=== PATIENT | female | born 1960 | race Caucasian/White ===

== ENCOUNTER 2016-07-11 13:03 | Inpatient (IN) | payer OTHER ==
[~2016-07-11] VITALS: Ht 156.2 cm; Wt 78.5 kg
[~2016-07-11 13:03] MED LIST: ALBU8.5H2 INHALATION; BUPR150T8 PO; LISI1TAB11 PO; METH40TA2 PO; OMEP40CA36 PO; PANT40TA3 PO; PARO10OR3 PO; ZOV800 PO
[2016-07-11 13:21] VITALS: BP 177/104; PULSE 89; RESP 20; O2SAT 94
[2016-07-11 13:59] LABS: BASOPHILS % (AUTO) 0.7 % (0-3)
[2016-07-11 14:02] LABS: EOSINOPHILS % (AUTO) 0.5 % (0-5); MONOCYTES % (AUTO) 7.9 % (4-12); Mean Corpuscular Volume 89.7 fL (81-100); Platelet Count 147 bil/L (150-400)
--- NOTE | 2016-07-11 14:35 | DRSVH ---
PROCEDURE: X-RAY ACUTE ABDOMINAL SERIES ([id number]) INDICATIONS: Hx of SBO severe ABD pain TECHNIQUE: One view chest and two views of the abdomen were acquired. COMPARISON: [facility], , ABD ACUTE SERIES, 05/09/2013, 6:50. FINDINGS: Surgical changes and devices: Surgical clips right upper quadrant consistent with cholecystectomy, ad ditional surgical clips left upper quadrant, uncertain etiology. Chest: Lungs are clear. Heart size is normal. No pleural effusions. No pneumoperitoneum. Abdomen: Bowel gas pattern is normal except for several small bowel loops over the mid abdomen and c entered to the left of midline at the midabdomen/pelvis junction where mild gas prominence is present . No suspicious calcifications. Visualized solid organ contours appear normal. Bones: No suspicious bony lesions. IMPRESSION: Small bowel gas prominence to the degree that a focal ileus or early small bowel obstruct ion would be suspected midabdomen, near the junction of the abdomen/pelvis. No free air or pneumatos is found, and a gas prominence does not reach the size criteria for true small bowel distention at th is time (3 cm). Dictated by: Thien Manzo M.D. on 07/11/2016 at 14:34 Approved by: Thien Manzo M.D. on 07/11/2016 at 14:34
--- NOTE | 2016-07-11 15:31 | ED.REPORT ---
HPI-Abd Pain F 40 and Over Date of Service Jul 11, 2016 ED Provider: Owne Locke MD A 56 year old female with a medical history including hypertension, SBO, hepatitis C, and COPD s/p multiple abdominal surgeries presents to the ED with lower abdominal pain onset 0400 this morning. She also reports vomiting and constipation, without passing gas. Her symptoms are similar to previous SBOs. Nursing Notes Stated Complaint: ABDOMINAL PAIN Chief Complaint: Female Abdominal Pain Nursing Notes Reviewed: Yes Allergies: Coded Allergies: meloxicam (Verified Allergy, Unknown, dizziness. CAN TAKE IBUPROFEN, ) tramadol (Verified Allergy, Unknown, seizure, 07/25/15) TAPE (Verified Adverse Reaction, Intermediate, rash, 10/15/14) Scheduled Bupropion ER (Wellbutrin SR) 150 Mg Tablet.er 150 MG PO DAILY Lisinopril / HCTZ 20-25 mg (Lisinopril / HCTZ 20-25 mg) 1 Each Tablet 1 EACH PO DAILY Methadone (Methadone) 40 Mg Tablet.sheela 76 MG PO DAILY Omeprazole (Omeprazole) 40 Mg Capsule.dr 40 MG PO DAILY Pantoprazole DR (Pantoprazole DR) 40 Mg Tablet.dr 40 MG PO DAILY Paroxetine (Paxil) 10 Mg Tab 10 MG PO DAILY Scheduled PRN Albuterol HFA (Proair HFA) 8.5 Gm Hfa.aer.ad 2 PUFFS INHALATION Q4H PRN PRN For Shortness of Breath Miscellaneous Medications Acyclovir (Acyclovir) 800 Mg Tab 800 MG PO General Time Seen by MD: 15:30 Chief Complaint Abdominal pain Hx Obtained From: Patient Arrived By: Walk-in Sudden in Onset?: Yes Onset Occurred: 9 - 12 hours ago Symptom Duration: Since onset Progression since Onset: Gradually worsening Location: : Abdomen lower Quality: Painful Severity: Current: Moderate Severity: Maximum: Moderate Associated with: Reports: Constipation, Vomiting, Denies: Fever Pertinent Negative: Relieved by nothing Context Related History: Reports: Abdominal surgery, Bowel obstruction Recent Healthcare: No recent doctor visit Similar Sx Previous: Yes Past Medical History Past Medical History Notes: Currently on methadone on taper 07/11/2016 lists meloxicam as allergy- tolerates ibuprofen and toradol Past Medical History Hypertension Blood clots (spleen) Antithrombin III deficiency Chronic hepatitis C Osteoarthritis 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 Physical Exam Vital Signs Vital Signs (First) Date Time Temp Pulse Resp B/P Pulse Ox O2 Delivery O2 Flow Rate FiO2 07/11/16 13:21 37.2 89 20 177/104 94 Room Air Initial VS: Reviewed Head / Eyes: Atraumatic, Normocephalic ENT: Conjunctiva normal, No scleral icterus Neck: Supple, Full range of motion Skin: Warm, Dry, No cyanosis Neurologic: Alert, Oriented, Nonfocal Psychiatric: Mood/affect normal, Behavior normal, Normal thought content Respiratory / Chest: Breath sounds NL, Breath sounds = bilat, No respiratory distress Cardiovascular: Heart rate NL, Regular rhythm, Heart sounds NL Abdomen: Soft Bowel Sounds / Distention: Positive: Bowel sounds hypoactive (Dramatically decreased, faint tinkling noises) Interpretation & Diagnostics Lab Results Interpretation Result Diagram: 07/11/16 1345 07/11/16 1345 Test 07/11/16 13:45 07/11/16 14:07 White Blood Count 8.5th/mm3 (3.8-10.1) Red Blood Count 4.48mil/mm3 (3.90-5.20) Hemoglobin 13.9g/dL (12.0-15.6) Hematocrit 40.2% (35.0-46.0) Mean Corpuscular Volume 89.7fL (81-100) Mean Corpuscular Hemoglobin 31.0pg (27.0-35.0) Mean Corpuscular Hemoglobin Concent 34.6% (32.0-37.0) Red Cell Distribution Width 14.3% (12.3-15.4) Platelet Count 147bil/L (150-400) Neutrophils (%) (Auto) 41.0% (40-74) Lymphocytes (%) (Auto) 49.3% (14-46) Monocytes (%) (Auto) 7.9% (4-12) Eosinophils (%) (Auto) 0.5% (0-5) Basophils (%) (Auto) 0.7% (0-3) Sodium Level 140mEq/L (134-144) Potassium Level 5.0mEq/L (3.5-5.2) Chloride Level 104mEq/L (97-108) Carbon Dioxide Level 22mmol/L (18-29) Blood Urea Nitrogen 14mg/dL (6-24) Creatinine 0.85mg/dL (0.57-1.00) Estimat Glomerular Filtration Rate 99mL/min (>59) Glucose Level 116mg/dL (60-99) Calcium Level 9.0mg/dL (8.5-10.1) Magnesium Level 2.0mg/dL (1.6-2.6) Total Bilirubin 0.8mg/dL (0.0-1.2) Aspartate Amino Transf (AST/SGOT) 50U/L (0-50) Alanine Aminotransferase (ALT/SGPT) 23U/L (0-32) Alkaline Phosphatase 159U/L (25-150) Total Protein 8.1g/dL (6.4-8.4) Albumin 4.1g/dL (3.4-5.0) Lipase 34U/L (13-60) Hold Helotn Top Tube Received (Received) X-Ray Abdominal Interpretation IMPRESSION: Small bowel gas prominence to the degree that a focal ileus or early small bowel obstruction would be suspected midabdomen, near the junction of the abdomen/pelvis. No free air or pneumatosis found, and a gas prominence does not reach the size criteria for true small bowel distention at this time (3 cm). Dictated by: Thien Manzo M.D. on 07/11/2016 at 14:34 Study: 2 view Interpretation / Wet Read by: Interpret - Radiologist Re-Eval/Medical Decision Source of Hx: Old records Re-Evaluation/Progress : Time of Eval: 15:45 Patient Status: Condition improved Re-Evaluation/Progress Note: Discussed with patient x-ray results, diagnosis, and plan for admit. Patient agrees with plan for care and all questions were addressed. Consultation : Referral / Consult Name: Chata Shay MD Consulted With: Hospitalist Call Returned at: 15:59 Tobacco Sorter: Agrees with eval, Agrees with plan, Accepts admit Counseled Regarding: Diagnosis, Need for admission Discharge & Departure Primary Impression: SBO (small bowel obstruction) Disposition: ADMITTED TO HOSPITAL Discharge Condition All VS Reviewed: Yes Condition: Stable Referrals: Junior Snowden PA-C (PCP) Anastasia Attestation Portions of this note were transcribed by Narda Agarwal. I, Dr. Locke, personally performed the history, physical exam, and medical decision-making; I reviewed and confirmed the accuracy of the information in the transcribed note. Signed by: Anastasia Grande, 07/11/2016, 16:04 copies to: Junior Snowden PA-C, Kirk H MD Jul 11, 2016 15:30 NARDA AGARWAL Jul 11, 2016 15:44
[2016-07-11] MEDS ORDERED: 0.9% Sodium Chloride 1,000 ML IV ONE (15:39)
[2016-07-11] MEDS ORDERED: Pantoprazole 4 mg/mL 10 mL Inj IVPUSH ONE ×2 (15:40→20:30)
[2016-07-11] MEDS ORDERED: Ondansetron 2 mg/mL 2 mL Inj IVPUSH PRN ×4 (15:40→17:15)
[2016-07-11] MEDS ORDERED: HYDROmorphone 1 mg/mL Inj IVPUSH ONE (15:40)
[2016-07-11] MEDS ORDERED: PARO10TA24 PO (16:10)
--- NOTE | 2016-07-11 16:19 | PCM.HPMED ---
Subjective Date of Service Jul 11, 2016 Primary Provider: Admitting Physician: Primary Care Physician: Junior Snowden PA-C Attending Physician: Chief Complaint: [facility] History of present illness 56-year-old female, multiple SBO, with lower abdominal pain at 4 AM, associated vomiting and obstipation. no blood invomitus. SBO started after rectal mesh 2007 due to fecal incontinence attributed to prior episiotomy. in the ER Dilaudid 5mg Protonix 40 normal saline 1 L Review of Systems - none of the following - F/C/sick contact / wt change/ HEADLEY / lightheaded / dizziness / sob / cough / cp / bleeding/bruising / leg swelling / change in voiding / yeast infections / rash chronic acid reflux despite PPI BID uses baking soda at times FAMILY HX colorectal cancer SOCIAL HX prior IV drug use/heroin cocaine, alcohol, 15cg per day meds Scheduled Acyclovir (Acyclovir) 800 Mg Tab 800 MG PO 5XD Bupropion ER (Wellbutrin SR) 150 Mg Tablet.er 150 MG PO BID Lisinopril / HCTZ 20-25 mg (Lisinopril / HCTZ 20-25 mg) 1 Each Tablet 1 EACH PO DAILY Methadone (Methadone) 40 Mg Tablet.sheela 76 MG PO DAILY Omeprazole (Omeprazole) 40 Mg Capsule.dr 40 MG PO DAILY Pantoprazole DR (Pantoprazole DR) 40 Mg Tablet.dr 40 MG PO DAILY Paroxetine (Paxil) 10 Mg/5 Ml Oral.susp 10 MG PO DAILY Scheduled PRN Albuterol HFA (Proair HFA) 8.5 Gm Hfa.aer.ad 2 PUFFS INHALATION Q4H PRN PRN For Shortness of Breath Past Medical/Surgical HX Hepatitis C chronicundetectable August 2014 /chronic lymphocytosis(WBC 10-15, lymphocytes 60%, negative CLL workup 2010) enlarged lymph nodes-- follow-up with oncology February 2017 Osteoarthritis sickle Cell trait/splenectomy childhood Colon polyp Tramadol related seizures Cardiac ablation WPW 1989, irregular heartbeat COPD GERD Pelvic inflammatory disease/tubal Incontinence Bilateral knee replacement, left ankle fracture/arthritis fecal incontinence s/p repair here Allergies Coded Allergies: meloxicam (Verified Allergy, Unknown, dizziness. CAN TAKE IBUPROFEN, ) tramadol (Verified Allergy, Unknown, seizure, 07/25/15) TAPE (Verified Adverse Reaction, Intermediate, rash, 10/15/14) PMH Social History Hx Alcohol Use: Yes Hx Substance Use: Yes (cocaine and heroine last used 2007; currently on methadone taper) Hx Tobacco Use: No Smoking Status: Never Smoker Exam Vital Signs Vital Sign - Last Date Time Temp Pulse Resp B/P Pulse Ox O2 Delivery O2 Flow Rate FiO2 07/11/16 13:21 37.2 89 20 177/104 94 Room Air Exam Exam on admission NAD A and O x 3 mood affect WNL NC/AT no icterus no injected eyes EOMI PERRL /no pharyngeal lesions/ no oral lesions / hearing intact Supple neck CTAB equal chest rise / no accessory muscle use / speaks in full sentences / no rrw RRR S1 S2 / no mrg / 2+ radial pulses Soft nt nd + BS no hepatosplenomegaly No edema no cyanosis no ecchymosis of lower extremities No rash / no jaundice GUERRIER CNII-XII grossly intact symmetrical No dysmetria of bilateral upper and lower limbs /no asterixis/ Strength grossly intact of bilateral upper and lower limbs Sensation grossly symmetrical of bilateral upper and lower limbs Lipase 34, alkaline phosphatase 159, LFTs normal PROCEDURE: X-RAY ACUTE ABDOMINAL SERIES ([id number]) INDICATIONS: Hx of SBO severe ABD pain TECHNIQUE: One view chest and two views of the abdomen were acquired. COMPARISON: [facility], , ABD ACUTE SERIES, 05/09/2013, 6:50. FINDINGS: Surgical changes and devices: Surgical clips right upper quadrant consistent with cholecystectomy, additional surgical clips left upper quadrant, uncertain etiology. Chest: Lungs are clear. Heart size is normal. No pleural effusions. No pneumoperitoneum. Abdomen: Bowel gas pattern is normal except for several small bowel loops over the mid abdomen and centered to the left of midline at the midabdomen/pelvis junction where mild gas prominence is present. No suspicious calcifications. Visualized solid organ contours appear normal. Bones: No suspicious bony lesions. IMPRESSION: Small bowel gas prominence to the degree that a focal ileus or early small bowel obstruction would be suspected midabdomen, near the junction of the abdomen/pelvis. No free air or pneumatosis found, and a gas prominence does not reach the size criteria for true small bowel distention at this time ( 3 cm). 06/04/2016 PROCEDURE: CT ABDOMEN AND PELVIS WITH CONTRAST ([id number]) INDICATIONS: H/O HEPATITIS C, F/U LYMPHADENOPATHY TECHNIQUE: After the administration of oral and intravenous contrast, 5 mm thick sections acquired from the diaphragms to the symphysis. 5 mm thick coronal and sagittal reformats were performed. For radiation dose reduction, the following was used : automated exposure control, adjustment of mA and/or kV according to patient size. COMPARISON: [facility], CT, ABD/PELVIS W/CON (PN), 09/26/2014, 9: 46. FINDINGS: Image quality: Excellent. ABDOMEN: Lung bases: Lung bases are clear. Heart size is normal. Solid organs: Liver is normal in size and enhancement. Hepatic steatosis is present. The spleen has been removed. Gallbladder has been removed. Biliary system is non-dilated. Pancreas enhances normally. No adrenal nodules. Kidneys are normal in size and enhancement, without hydronephrosis. Peritoneum and bowel: Stomach, small bowel, and colon loops are normal in caliber and wall thickness. No free fluid or air. Nodes and vessels: The previously identified periportal and peripancreatic lymph nodes demonstrate very minimal interval decrease in size, 1-2 mm. Otherwise, no appreciable interval change. No new areas of adenopathy are identified. Aorta and inferior vena cava are normal in caliber. Miscellaneous: No ventral hernias. PELVIS: Genitourinary: Bladder wall thickness is normal. Miscellaneous: No inguinal hernias or adenopathy. Bones: No suspicious bony lesions. No vertebral body compression fractures. IMPRESSION: 1. Very minimal interval decrease in size of previous identified periportal and peripancreatic lymph nodes. Otherwise, stable interval exam. Lab and Diagnostics Result Diagram: 07/11/16 1345 07/11/16 1345 Assessment & Plan Active issues and reason for admission Recurrent SBO, on methadone --if recurrent vomit, start NGT and order CT. --zofran, trial relistor, monitor electrolytes --recommend outpt gen surg f/u regarding lysis of adhesion candidacy chronic methadone --dilaudid Q3 / ativan / Monitor withdrawal smoker --prn nicotine patch Chronic issues known prior to admission, present on admission Hepatitis C chronicundetectable August 2014 /chronic lymphocytosis(WBC 10-15, lymphocytes 60%, negative CLL workup 2010) enlarged lymph nodes-- follow-up with oncology February 2017 Osteoarthritis sickle Cell trait/splenectomy childhood Colon polyp Tramadol related seizures Cardiac ablation WPW 1989, irregular heartbeat COPD GERD Pelvic inflammatory disease/tubal Incontinence Bilateral knee replacement, left ankle fracture/arthritis --held home omep/proton, on IV famotidine and IV PPI --albuterol prn Diet npo DVT prophylaxis lovenox heparin scd ambulate Code full Disposition inpatient. Assessment and plan were discussed with patient Chata Shay MD Jul 11, 2016 16:17 07/11/16 13:21 37.2 89 20 177/104 94 Room Air Lab and Diagnostics Result Diagram: 07/11/16 1345 07/11/16 1345 Chata Shay MD Jul 11, 2016 16:17
[2016-07-11] MEDS ORDERED: HYDROmorphone 1 mg/mL Inj IVPUSH PRN ×2 (16:20→19:20)
[2016-07-11] MEDS ORDERED: Methylnaltrexone 12 mg/0.6 mL Inj SUBQ ONE (16:20)
[2016-07-11 16:31] LABS: INR 1.05 ratio
[2016-07-11] MEDS ORDERED: D5 0.45% NaCl + KCl 20 mEq/L 1,000 ML IV SCH (17:07)
[2016-07-11] MEDS ORDERED: Albuterol-Ipratropium 3 mL Inhalation Solution NEB PRN (17:15)
--- NOTE | 2016-07-11 17:59 | NUR ---
Transfer from ED to [facility] [place] Report received by nurse approx [phone]. patient is alert and oriented X3. Able to make needs known. room air. Wide open NS running when came to [facility] [place]. IV site noted to be puffy. Discontinued IV on the right upper arm. charge nurse called IV therapy and new IV start is in the process by IV therapy. independent with all transfers and bed mobility. mild pain in the abdomen reported by patient. o skin issues noted. redness/bruising to bilateral arms due to IV starts in the ER per patient. call light with in reach for safety and verbalize the use of call light. stable mood. continue to monitor for pain and safety.
[2016-07-11 18:14] VITALS: BP 160/87; PULSE 88; RESP 16; O2SAT 93
--- NOTE | 2016-07-11 18:26 | NUR ---
PICC product line manager pageasher Doctor r/t IV therapy unable to start IV access. doctor orders to start PICC line.
--- NOTE | 2016-07-11 18:32 | NUR ---
Called IV therapy for PICC line Called IV therapy for new orders from doctor to start PICC line and IV therapy stated," it is too late to do." Jere paged doctor for further orders. awaiting response.
[2016-07-11 20:30] VITALS: BP 187/99; PULSE 78; RESP 20; O2SAT 94
[2016-07-11] MEDS ORDERED: Famotidine Inj 20 MG in IV Premix 1 EACH IV SCH (20:30)
[2016-07-11] MEDS: HYDROmorphone 1 mg/mL Inj IVPUSH PRN ×3 (21:03→22:20)
[2016-07-11] MEDS: D5 0.45% NaCl + KCl 20 mEq/L 1,000 ML IV SCH (21:03)
--- NOTE | 2016-07-11 21:11 | ABG ---
DateTimeAnalyzed 21:04:00 -_ pH ____7.405 - 7.350 7.450 pCO2 ___38.7__ -mmHg 35.0 45.0 pO2 ___38.9__ -mmHg 70.0 100 HCO3- ___23.8__ -mmol/L 22.0 26.0 ABE ___-0.2__ -mmol/L -2.0 2.0 tHb ___13.1__ -g/dL 12.0 18.0 O2Hb ___68.3__ -% 95.0 COHb ____1.7__ -% 1.5 MetHb ____1.3__ -% 0.4 1.5 sO2 ___70.4__ -% FIO2 ___21.0__ -% Drawn By jh - Date/Time Notified____ 21:10:00 -_ Notified By JH - Notified Whom ANES - B 736 -mmHg tO2 ___12.6__ -Vol% Eliseo test N/A -
[2016-07-12] MEDS: Famotidine Inj 20 MG in IV Premix 1 EACH IV SCH ×3 (00:15→20:24)
[2016-07-12] MEDS ORDERED: Methylnaltrexone 12 mg/0.6 mL Inj SUBQ ONE (01:05)
[2016-07-12] MEDS: HYDROmorphone 1 mg/mL Inj IVPUSH PRN ×2 (01:19→04:43)
[2016-07-12 01:45] VITALS: BP 161/84; PULSE 69; RESP 16; O2SAT 94
[2016-07-12 04:13] VITALS: BP 165/90; PULSE 73; RESP 17; O2SAT 94
--- NOTE | 2016-07-12 06:47 | NUR ---
BPs/Pain Pt's BP has been elevated throughout the shift and MD was notified. There are currently no IV BP meds for the pt. The pt takes lisinopril/HCTZ 20-25mg 1xdaily. Pt also takes methadone 76mg 1xdaily in the AM and there is currently none in the EMAR. Pt's pain remains 7/10-8/10 with no relief from 4mg Dilaudid that can be given Q3H.
[2016-07-12] MEDS: Methadone 10 mg/mL 30 mL Oral Concentration PO SCH (09:27)
[2016-07-12] MEDS: Pantoprazole 40 mg ER24 Tablet PO SCH (09:27)
[2016-07-12] MEDS: buPROPion SR 150 mg ER12 Tablet PO SCH (09:27)
[2016-07-12] MEDS: PARoxetine 20 mg Tablet PO SCH (09:28)
[2016-07-12 10:08] LABS: BASOPHILS % (AUTO) 0.4 % (0-3); EOSINOPHILS % (AUTO) 1.1 % (0-5); MONOCYTES % (AUTO) 11.7 % (4-12); Mean Corpuscular Hemoglobin 31.6 pg (27.0-35.0); Mean Corpuscular Volume 91.5 fL (81-100); NEUTROPHILS % (AUTO) 31.8 % (40-74); Platelet Count 134 bil/L (150-400)
[2016-07-12] MEDS: D5 0.45% NaCl + KCl 20 mEq/L 1,000 ML IV SCH ×2 (10:17→21:33)
[2016-07-12] MEDS ORDERED: Albuterol 2.5 mg/3 mL Inhalation Solution NEB PRN (11:00)
[2016-07-12 12:30] VITALS: BP 134/81; PULSE 78; RESP 16; O2SAT 92
--- NOTE | 2016-07-12 14:47 | PCM.PNMED ---
Subjective Date of Service Jul 12, 2016 Subjective Patient seen earlier this morning, lying supine in bed. Today pain is about a 5 -610. He is on methadone and has been restarted this morning. We will stop Dilaudid for now and see if we can substitute with when necessary Toradol for persistent pain. Patient states she is passing gas and had small small BM Exam Vital Signs Vital Sign - Last Date Time Temp Pulse Resp B/P Pulse Ox O2 Delivery O2 Flow Rate FiO2 07/12/16 12:30 36.8 78 16 134/81 92 Room Air Intake and Output 07/11/16 07/11/16 07/12/16 Cumulative From/Thru 15:00 23:00 07:00 07/11/16 13:21 - 07/12/16 06:10 Intake Total 100 ml 630 ml 730 ml Balance 100 ml 630 ml 730 ml Intake Oral 0 ml 0 ml IV Total 100 ml 630 ml 730 ml # Voids 2 2 # Bowel Movements 1 1 Exam NAD A and O x 3 mood affect WNL, lying supine NC/AT no icterus no injected eyes EOMI PERRL /no pharyngeal lesions/ no oral lesions / hearing intact Supple neck CTAB equal chest rise / no accessory muscle use / speaks in full sentences / no rrw RRR S1 S2 / no mrg / 2+ radial pulses Soft positive epigastric pain, no guarding or peritoneal signs decreased bowel sounds, no hepatosplenomegaly No edema no cyanosis no ecchymosis of lower extremities No rash / no jaundice GUERRIER CNII-XII grossly intact symmetrical No dysmetria of bilateral upper and lower limbs /no asterixis/ Strength grossly intact of bilateral upper and lower limbs Sensation grossly symmetrical of bilateral upper and lower limbs IVs and Medications Medications Reviewed: Medications were reviewed in detail Lab and Diagnostics Result Diagram: 07/12/1645 07/12/16 0945 X-Rays, CTs and MRIs IMPRESSION: Small bowel gas prominence to the degree that a focal ileus or early small bowel obstruction would be suspected midabdomen, near the junction of the abdomen/pelvis. No free air or pneumatosis found, and a gas prominence does not reach the size criteria for true small bowel distention at this time ( 3 cm). Dictated by: Thien Manzo M.D. on 07/11/2016 at 14:34 Assessment & Plan Active issues and reason for admission Recurrent SBO, on methadone --if recurrent vomit, start NGT and order CT. --zofran, trial relistor, monitor electrolytes --recommend outpt gen surg f/u regarding lysis of adhesion candidacy -- Recheck abdominal x-ray, trial of full liquid diet tomorrow chronic methadone . Dilaudid, trial of Toradol when necessary if pain unresponsive to methadone and failed comfort with when necessary ativan / Monitor withdrawal smoker --prn nicotine patch Chronic issues known prior to admission, present on admission Hepatitis C chronicundetectable August 2014 /chronic lymphocytosis(WBC 10-15, lymphocytes 60%, negative CLL workup 2010) enlarged lymph nodes-- follow-up with oncology February 2017 Osteoarthritis sickle Cell trait/splenectomy childhood Colon polyp Tramadol related seizures Cardiac ablation WPW 1989, irregular heartbeat COPD GERD Pelvic inflammatory disease/tubal Incontinence Bilateral knee replacement, left ankle fracture/arthritis --held home omep/proton, on IV famotidine and IV PPI --albuterol prn Diet npo DVT prophylaxis lovenox heparin scd ambulate Code full Disposition inpatient. Assessment and plan were discussed with patient Pain Evaluation: Adequate Pain Control VTE Prophylaxis: Sub-Q Enoxaparin Resuscitation Status: CPR: Attempt Resuscitation Time spent 35 minutes spent with evaluation and management Grant Prado DO Jul 12, 2016 14:47
--- NOTE | 2016-07-12 16:19 | DRSVH ---
PROCEDURE: X-RAY ACUTE ABDOMINAL SERIES ([id number]) INDICATIONS: small bowel obstruction TECHNIQUE: One view chest and two views of the abdomen were acquired. COMPARISON: [facility], CR, XR ABD ACUTE SERIES 3VW, 07/11/2016, 13:58. FINDINGS: Surgical changes and devices: Clips are present overlying the upper quadrants bilaterally. Chest: Lungs are clear. Heart size is normal. No pleural effusions. No pneumoperitoneum. Abdomen: There is scattered small air-fluid levels within the abdomen and pelvis. No suspicious calci fications. Visualized solid organ contours appear normal. Bones: No suspicious bony lesions. IMPRESSION: Small scattered air-fluid levels within the abdomen pelvis. Findings are suggestive of il eus versus developing partial small bowel obstruction. Overall appearance does not demonstrate significant interval deterioration or improvement compared to prior exam. Dictated by: Lizzie Dykes M.D. on 07/12/2016 at 16:13 Approved by: Lizzie Dykes M.D. on 07/12/2016 at 16:13
--- NOTE | 2016-07-12 16:22 | NUR ---
Social Work Note: Screen Note Data and Assessment: EMR reviewed. Akanksha Hewitt is a 56 year old female admitted on 07/11/2016 for Abdominal pain. Pt has [employer] for insurance coverage and sees Junior Painting PA-C for primary care. Patient's NOK is September . Patient is independent at baseline. Pt is currently SBA in her room. No discharge needs identified at this time. SW to continue to follow if any needs arise. Plan: Anticipated discharge home via POV when medically ready. No discharge needs identified at this time. SW to continue to follow in case any needs arise. Lynn Madrid LMSW, ACM
[2016-07-12 20:57] VITALS: BP 143/81; PULSE 73; RESP 16; O2SAT 94
--- NOTE | 2016-07-13 04:51 | NUR ---
Shift Note Assumed pt care at 1900, pt continues with IVF, no nausea/vomiting/Gi distress, no c/o of breakthrough pain as of this time.
[2016-07-13 05:17] VITALS: BP 143/76; PULSE 62; RESP 16; O2SAT 94
--- NOTE | 2016-07-13 07:42 | PCM.PNMED ---
Subjective Date of Service Jul 13, 2016 Subjective did have BM yesterday, no acute complaints, pain moderately controlled. no f/c/ sob/cp - xray no changes Exam Vital Signs Vital Sign - Last Date Time Temp Pulse Resp B/P Pulse Ox O2 Delivery O2 Flow Rate FiO2 07/13/16 05:17 36.4 62 16 143/76 94 Room Air Intake and Output 07/12/16 07/12/16 07/13/16 Cumulative From/Thru 15:00 23:00 07:00 07/11/16 13:21 - 07/13/16 06:48 Intake Total 813 ml 1163 ml 2706 ml Output Total 1100 ml 1100 ml Balance 813 ml 63 ml 1606 ml Intake Oral 450 ml 450 ml IV Total 813 ml 713 ml 2256 ml Output Urine Total 1100 ml 1100 ml # Voids 2 # Bowel Movements 1 Exam NAD A and O x 3 mood affect WNL, lying supine NC/AT no icterus no injected eyes EOMI PERRL /no pharyngeal lesions/ no oral lesions / hearing intact Supple neck CTAB equal chest rise / no accessory muscle use / speaks in full sentences / no rrw RRR S1 S2 / no mrg / 2+ radial pulses Soft positive epigastric pain, no guarding or peritoneal signs decreased bowel sounds, no hepatosplenomegaly No edema no cyanosis no ecchymosis of lower extremities No rash / no jaundice GUERRIER CNII-XII grossly intact symmetrical No dysmetria of bilateral upper and lower limbs /no asterixis/ Strength grossly intact of bilateral upper and lower limbs Sensation grossly symmetrical of bilateral upper and lower limbs IVs and Medications Medications Reviewed: Medications were reviewed in detail Lab and Diagnostics Result Diagram: 07/12/1645 07/12/16 0945 X-Rays, CTs and MRIs IMPRESSION: Small bowel gas prominence to the degree that a focal ileus or early small bowel obstruction would be suspected midabdomen, near the junction of the abdomen/pelvis. No free air or pneumatosis found, and a gas prominence does not reach the size criteria for true small bowel distention at this time ( 3 cm). Dictated by: Thien Manzo M.D. on 07/11/2016 at 14:34 Assessment & Plan Active issues and reason for admission Recurrent SBO, on methadone- stable/improving - had BM --trial of cld this AM --zofran, trial relistor, monitor electrolytes --recommend outpt gen surg f/u regarding lysis of adhesion candidacy -- Rechecked xray with no sig radiographic change chronic methadone . dc Dilaudid, trial of Toradol when necessary if pain unresponsive to methadone and failed comfort with when necessary ativan / Monitor withdrawal smoker --prn nicotine patch Chronic issues known prior to admission, present on admission Hepatitis C chronicundetectable August 2014 /chronic lymphocytosis(WBC 10-15, lymphocytes 60%, negative CLL workup 2010) enlarged lymph nodes-- follow-up with oncology February 2017 Osteoarthritis sickle Cell trait/splenectomy childhood Colon polyp Tramadol related seizures Cardiac ablation WPW 1989, irregular heartbeat COPD GERD Pelvic inflammatory disease/tubal Incontinence Bilateral knee replacement, left ankle fracture/arthritis --held home omep/proton, on IV famotidine and IV PPI --albuterol prn Diet npo DVT prophylaxis lovenox heparin scd ambulate Code full Disposition inpatient - dc pending clinical improv of sbo Assessment and plan were discussed with patient Pain Evaluation: Adequate Pain Control VTE Prophylaxis: Sub-Q Enoxaparin Resuscitation Status: CPR: Attempt Resuscitation Time spent 30 minutes spent with eval and mgmt Grant Prado DO Jul 13, 2016 07:42
[2016-07-13] MEDS: Pantoprazole 40 mg ER24 Tablet PO SCH (08:26)
[2016-07-13] MEDS: buPROPion SR 150 mg ER12 Tablet PO SCH (08:26)
[2016-07-13] MEDS: PARoxetine 20 mg Tablet PO SCH (08:27)
[2016-07-13] MEDS: Methadone 10 mg/mL 30 mL Oral Concentration PO SCH (08:27)
[2016-07-13] MEDS: Famotidine Inj 20 MG in IV Premix 1 EACH IV SCH ×2 (08:28→19:50)
[2016-07-13] MEDS ORDERED: Methylnaltrexone 12 mg/0.6 mL Inj SUBQ SCH ×2 (08:30)
[2016-07-13 09:21] VITALS: BP 179/95; PULSE 85; RESP 22; O2SAT 92
[2016-07-13 09:39] LABS: BASOPHILS % (AUTO) 0.8 % (0-3); EOSINOPHILS % (AUTO) 1.7 % (0-5); MONOCYTES % (AUTO) 11.2 % (4-12); Mean Corpuscular Hemoglobin 31.1 pg (27.0-35.0); Mean Corpuscular Volume 92.5 fL (81-100); NEUTROPHILS % (AUTO) 20.4 % (40-74); Platelet Count 144 bil/L (150-400)
[2016-07-13 10:52] VITALS: PULSE 88; RESP 16; O2SAT 99
[2016-07-13] MEDS: D5 0.45% NaCl + KCl 20 mEq/L 1,000 ML IV SCH (11:37)
[2016-07-13 15:03] VITALS: BP 158/94; PULSE 84; RESP 20; O2SAT 94
--- NOTE | 2016-07-13 17:56 | NUR ---
Mentation patient is alert and oriented x3. able to make needs known. patient walked 2 times this shift with some shortness of breath. Respiratory therapist started neb treatment with effective results. Received all PO medication as ordered with out difficulty swallowing. c/o pain to her abdomen and notified doctor and received orders for PRn morphine with effective results. call light with in reach for safety. stable mood. continue to monitor for pain and safety.
[2016-07-13 18:43] VITALS: BP 160/69; PULSE 78; RESP 20; O2SAT 93
[2016-07-13 20:31] VITALS: BP 183/78; PULSE 71; RESP 22; O2SAT 94
[2016-07-14] MEDS: D5 0.45% NaCl + KCl 20 mEq/L 1,000 ML IV SCH ×2 (00:27→18:33)
--- NOTE | 2016-07-14 04:32 | NUR ---
Pain / IV Pt has had uncontrolled pain throughout the night. 2mg Morphine plus K heating pad effective for relief. IV was alarming w/ occlusion, flushed and now remains patent and infusing w/ ease.
[2016-07-14 06:05] VITALS: BP 137/78; PULSE 80; RESP 20; O2SAT 94
--- NOTE | 2016-07-14 07:26 | PROCED ---
[address] [address] PROCEDURE NOTE PATIENT: NIKHIL TREJO : 1960 MR#: [id number] ADMIT: 07/11/2016 JOB ID: [id number] DATE OF SERVICE: 07/11/2016 PROCEDURE: Anesthesia ultrasound-guided basilic vein cannulation. SURGEON: Judson Alvarez MD. I was called by the patient's hospitalist, Dr. Shay, to place a peripheral IV as IV therapy was unable to place one earlier today and needed to go home. DESCRIPTION OF PROCEDURE: I attempted two peripheral IVs in her left arm without success as well as a IV in her left ankle. Under ultrasound guidance I was able to place a right basilic vein peripheral IV using a 20-gauge Angiocath. Sterile technique was utilized at all times during the procedure. A sign out was performed verifying the correct placement and patient. The skin was prepped with ChloraPrep. I used sterile gloves. The vein was easily visualized under the ultrasound. Under continuous ultrasound guidance, I was able to place a catheter until flash was obtained. I was able to visualize the catheter actually enter the basilic vein. A sterile Tegaderm was then applied with a good return of blood flow and the IV flushed easily. It was then firmly attached to the skin using paper tape. Just to verify correct venous access, venous blood gas was performed which showed it to be actually in the vein. [facility] CENTERHolli
[2016-07-14 07:33] VITALS: BP 148/84; PULSE 80; RESP 18; O2SAT 95
[2016-07-14 07:36] VITALS: PULSE 80; RESP 16; O2SAT 95
[2016-07-14 07:53] LABS: BASOPHILS % (AUTO) 0.6 % (0-3); EOSINOPHILS % (AUTO) 0.9 % (0-5); MONOCYTES % (AUTO) 11.4 % (4-12); Mean Corpuscular Hemoglobin 31.5 pg (27.0-35.0); Mean Corpuscular Volume 92.3 fL (81-100); NEUTROPHILS % (AUTO) 24.9 % (40-74); Platelet Count 149 bil/L (150-400)
[2016-07-14] MEDS: Famotidine Inj 20 MG in IV Premix 1 EACH IV SCH ×2 (08:22→20:33)
[2016-07-14] MEDS: buPROPion SR 150 mg ER12 Tablet PO SCH (08:23)
[2016-07-14] MEDS: PARoxetine 20 mg Tablet PO SCH (08:23)
[2016-07-14] MEDS: Pantoprazole 40 mg ER24 Tablet PO SCH (08:24)
[2016-07-14] MEDS: Methadone 10 mg/mL 30 mL Oral Concentration PO SCH (08:48)
[2016-07-14 12:28] VITALS: BP 147/75; PULSE 106; RESP 18; O2SAT 91
--- NOTE | 2016-07-14 13:06 | DRSVH ---
PROCEDURE: X-RAY CHEST ONE VIEW, PORTABLE ([id number]) INDICATIONS: Questionable NG tube placement TECHNIQUE: One view of the chest was acquired. COMPARISON: [facility], CR, XR CHEST 1VW (PORTABLE), 03/18/2016, 15:51. [facility], [facility] ABD ACUTE SER[facility] 3VW, 07/12/2016, 15:14. FINDINGS: Surgical changes and devices: Nasogastric tube tip projected over the is upper mediastinum at the lev el of the sixth posterior ribs epigastric surgical clips. Lungs and pleura: No pleural effusions or pneumothorax. Lungs are clear. Mediastinum: Mediastinal contours appear normal. Heart size is normal. Bones and chest wall: No suspicious bony lesions. Overlying soft tissues appear unremarkable. IMPRESSION: Nasogastric tube tip projected over the upper mediastinum which cannot be further localiz ed without orthogonal view. Dictated by: Darien PACK Interpreted: Anyi Alonso MD on 07/14/2016 at 13:04 Transcribed by: DILLAN on 07/14/2016 at 13:05 Approved by: Anyi Alonso M.D. on 07/14/2016 at 14:24
--- NOTE | 2016-07-14 14:26 | PCM.PNMED ---
Subjective Date of Service Jul 14, 2016 Subjective pt still complain of abdomen bloating significant pain, NGT will be inserted today Exam Vital Signs Vital Sign - Last Date Time Temp Pulse Resp B/P Pulse Ox O2 Delivery O2 Flow Rate FiO2 07/14/16 12:28 36.6 106 18 147/75 91 Room Air Intake and Output 07/13/16 07/13/16 07/14/16 Cumulative From/Thru 15:00 23:00 07:00 07/11/16 13:21 - 07/14/16 06:30 Intake Total 1894 ml 1513 ml 6113 ml Output Total 600 ml 1675 ml 3375 ml Balance 1294 ml -162 ml 2738 ml Intake Oral 1370 ml 637 ml 2457 ml IV Total 524 ml 876 ml 3656 ml Output Urine Total 600 ml 1425 ml 3125 ml Emesis 250 ml 250 ml # Voids 2 # Bowel Movements 0 1 Exam NAD, comfortably laying down on the bed no JVD, MMM, no LAD RRR, nl s1, s2 no mrg CTAB, no w,c Diffuse tenderness, distended, normoactive BS+ warm, no edema, pulses 2/2 IVs and Medications Medications Reviewed: Medications were reviewed in detail Lab and Diagnostics Result Diagram: 07/14/1664207/14/16642 X-Rays, CTs and MRIs IMPRESSION: Small bowel gas prominence to the degree that a focal ileus or early small bowel obstruction would be suspected midabdomen, near the junction of the abdomen/pelvis. No free air or pneumatosis found, and a gas prominence does not reach the size criteria for true small bowel distention at this time ( 3 cm). Dictated by: Thien Manzo M.D. on 07/11/2016 at 14:34 Assessment & Plan Active issues and reason for admission #Recurrent SBO, POA, in the setting of prior abd surg, precipitated with chronic methadone use, -start NG decompression, with low intermittent suction -strict NPO for now, -zofran, trial relistor, monitor electrolytes -will try gastrograffin challenge if pt remains stable tomorrow, if not get surgery consult for recurrent unresolving SBO #chronic opioid use with methadone -dc Dilaudid, trial of Toradol when necessary if pain unresponsive to methadone and failed comfort with when necessary ativan / Monitor withdrawal smoker --prn nicotine patch Chronic issues known prior to admission, present on admission Hepatitis C chronicundetectable August 2014 /chronic lymphocytosis(WBC 10-15, lymphocytes 60%, negative CLL workup 2010) enlarged lymph nodes-- follow-up with oncology February 2017 Osteoarthritis sickle Cell trait/splenectomy childhood Colon polyp Tramadol related seizures Cardiac ablation WPW 1989, irregular heartbeat COPD GERD Pelvic inflammatory disease/tubal Incontinence Bilateral knee replacement, left ankle fracture/arthritis --held home omep/proton, on IV famotidine and IV PPI --albuterol prn Diet npo DVT prophylaxis lovenox heparin scd ambulate Code full Disposition likely needs 2-3more days, daily assessment. VTE Prophylaxis: Sub-Q Enoxaparin Resuscitation Status: CPR: Attempt Resuscitation Time spent 35min Shady Mcallister MD Jul 14, 2016 14:26
--- NOTE | 2016-07-14 15:00 | DRSVH ---
PROCEDURE: X-RAY CHEST ONE VIEW, PORTABLE ([id number]) INDICATIONS: NASOGASTRIC TUBE PLACEMENT TECHNIQUE: One view of the chest was acquired. COMPARISON: [facility], CR, XR CHEST 1VW (PORTABLE), 07[facility]14[facility]2016, 12:02[facility] 3[facility]W, 07/12/2016, 15:14. FINDINGS: Surgical changes and devices: Nasogastric tube tip is been advanced with the tip now extending beyond the GE junction. Side-port is not well-seen but likely is at the level of the GE junction. Epigast mervin pain cholecystectomy surgical clips redemonstrated. Lungs and pleura: No pleural effusions or pneumothorax. Lungs are clear. Mediastinum: Mediastinal contours appear normal. Heart size is normal. Bones and chest wall: No suspicious bony lesions. Overlying soft tissues appear unremarkable. IMPRESSION: Interval advancement of nasogastric tube tip now traversing the GE junction. Of note, pr ominence of small bowel loop again seen within the midabdomen. Dictated by: Darien Lopez [facility] Interpreted: Anyi Alonso MD on 07/14/2016 at 14:58 Transcribed by: DILLAN on 07/14/2016 at 15:00 Approved by: Anyi Alonso M.D. on 07/14/2016 at 15:52
--- NOTE | 2016-07-14 16:29 | NUR ---
NUTRITION ASSESSMENT: ASSESS: 56 YO female admitted for SBO. Pt was on a full liquid diet, but abd. pain has increased so pt is now NPO and an NG tube has been placed for suction. PMHx: Extensive abd. surgeries, multiple SBO, and hep C, previous drug use, osteoarthritis, colon polyps, COPD, GERD, asthma. LABS: Reviewed. Alb 4.1 MEDS: Reviewed. GI: BM x 1 (07/12). NG tube placed for suction today. CURRENT WT: 78.5 kg. IBW: 48.9 kg. DIET: NPO today. Pt was eating 50-100% of full liquids prior to NPO status. EST. NEEDS (BMI, COPD): 4668-6006 kcals (22-25 kcals/kg BW), 60-75 g protein (1.2-1.5 g/kg IBW) DIAGNOSIS: 1.) Inadequate oral intake related to altered GI tract function (SBO) as evidenced by current NPO status. INTERVENTION: 1.) Will continue to await timely advancement of diet hopefully within the next 24-48 hours. MONITOR / EVAL: Diet advancement / tolerance, labs, nutritional status. Follow per high nutrition risk guidelines.
[2016-07-14 16:59] VITALS: BP 146/83; PULSE 84; RESP 14; O2SAT 93
--- NOTE | 2016-07-14 18:13 | NUR ---
NG tube placement NG placed today at 1130 with moderate difficulty. Pt. developed a bad bloody nose during placement, but this resolved with mild pressure. I could not hear much air movement, and x-ray was inconclusive. Tube was advanced several centimeters and x-rayed again. placement verified and NG tube connected to low intermittent suction per MD orders. No output at this time.
[2016-07-14 20:18] VITALS: BP 144/89; PULSE 76; RESP 16; O2SAT 94
--- NOTE | 2016-07-15 03:30 | NUR ---
Noncompliance Issues Patient has been attempting to change IV settings consistently. Usually an issue when IV starts beeping for distal occlusion. Even with the IV locked, they have tried everything from turning it off and on as well as removing the cassette and reinstalling. Continuing to reeducate and reinforce that the patient cannot do this, however, patient continues to do so.
[2016-07-15 05:17] VITALS: BP 125/80; PULSE 83; RESP 18; O2SAT 93
[2016-07-15 06:17] LABS: BASOPHILS % (AUTO) 0.5 % (0-3); EOSINOPHILS % (AUTO) 1.4 % (0-5); MONOCYTES % (AUTO) 12.9 % (4-12); Mean Corpuscular Hemoglobin 31.6 pg (27.0-35.0); Mean Corpuscular Volume 92.4 fL (81-100); NEUTROPHILS % (AUTO) 25.5 % (40-74); Platelet Count 143 bil/L (150-400)
[2016-07-15 06:55] LABS: Magnesium 1.9 mg/dL (1.6-2.6); Phosphorus 4.4 mg/dL (2.5-4.9)
[2016-07-15 07:49] VITALS: BP 138/83; PULSE 76; RESP 18; O2SAT 94
[2016-07-15] MEDS: D5 0.45% NaCl + KCl 20 mEq/L 1,000 ML IV SCH ×2 (08:25→23:05)
[2016-07-15] MEDS: Pantoprazole 40 mg ER24 Tablet PO SCH (08:50)
[2016-07-15] MEDS: buPROPion SR 150 mg ER12 Tablet PO SCH (08:50)
[2016-07-15] MEDS: Famotidine Inj 20 MG in IV Premix 1 EACH IV SCH ×2 (08:51→19:44)
[2016-07-15] MEDS: PARoxetine 20 mg Tablet PO SCH (08:51)
[2016-07-15] MEDS: Methadone 10 mg/mL 30 mL Oral Concentration PO SCH (09:01)
--- NOTE | 2016-07-15 10:28 | DRSVH ---
PROCEDURE: X-RAY ACUTE ABDOMINAL SERIES ([id number]) INDICATIONS: sbo follow up TECHNIQUE: One view chest and two views of the abdomen were acquired. COMPARISON: [facility], CR, XR ABD ACUTE SERIES 3VW, 07/12/2016, 15:14. [facility], CR, XR CHEST 1VW (PORTABLE), 07/14/2016, 14:48. FINDINGS: Surgical changes and devices: Cholecystectomy clips. Nasogastric tube tip coiled within the gastric fundus. Chest: Lungs are clear. Heart size is normal. No pleural effusions. No pneumoperitoneum. Abdomen: Prominence of small bowel loops within the midabdomen redemonstrated otherwise bowel gas pat tern is normal. No pneumatosis or bowel wall thickening. No pneumoperitoneum. Bones: No suspicious bony lesions. IMPRESSION: Mild gaseous distention of small bowel in the midabdomen redemonstrated and partial small bowel obstruction cannot be excluded. Recommend clinical correlation and followup. Dictated by: Darien PETERSON Interpreted: Isha Quinones MD on 07/15/2016 at 10:26 Transcribed by: NEVILLE on 07/15/2016 at 10:28 Approved by: Isha Quinones MD, PhD on 07/15/2016 at 17:07
--- NOTE | 2016-07-15 11:23 | PCM.PNMED ---
Subjective Date of Service Jul 15, 2016 Subjective On the less than 1200 mL output since NG tube was inserted yesterday Patient denied nausea or vomiting Still has some pain in the lower belly Exam Vital Signs Vital Sign - Last Date Time Temp Pulse Resp B/P Pulse Ox O2 Delivery O2 Flow Rate FiO2 07/15/16 07:49 36.8 76 18 138/83 94 Room Air Intake and Output 07/14/16 07/14/16 07/15/16 Cumulative From/Thru 15:00 23:00 07:00 07/11/16 13:21 - 07/15/16 06:37 Intake Total 923 ml 910 ml 7946 ml Output Total 3375 ml Balance 923 ml 910 ml 4571 ml Intake Oral 240 ml 0 ml 2697 ml IV Total 683 ml 910 ml 5249 ml Output Urine Total 3125 ml Emesis 250 ml # Voids 6 5 13 # Bowel Movements 1 Exam NAD, comfortably laying down on the bed no JVD, MMM, no LAD RRR, nl s1, s2 no mrg CTAB, no w,c hypoactive BS and Tenderness on the lower quadrant, active BS on UQ warm, no edema, pulses 2/[address] IVs and Medications Medications Reviewed: Medications were reviewed in detail Lab and Diagnostics Result Diagram: 07/15/16 0535 07/15/16 0535 X-Rays, CTs and MRIs IMPRESSION: Small bowel gas prominence to the degree that a focal ileus or early small bowel obstruction would be suspected midabdomen, near the junction of the abdomen/pelvis. No free air or pneumatosis found, and a gas prominence does not reach the size criteria for true small bowel distention at this time ( 3 cm). Dictated by: Thien Manzo M.D. on 07/11/2016 at 14:34 Assessment & Plan Active issues and reason for admission #Recurrent SBO, POA, in the setting of prior abd surg, precipitated with chronic methadone use, NGT inserted 07/14, remained stable. repeat acute SBO series showed possible partial SBO, exam more consistent with ileus as primary trigger for her sx given huge opioid dose. -continue NG decompression, with low intermittent suction -zofran, trial relistor, monitor electrolytes -give enema, ducolax, likely to start aggressive bowel regimen via NG untill see BM -will consider surgery consult, gastrograffin challenge if sx continues #chronic opioid use with methadone -dc Dilaudid, trial of Toradol when necessary if pain unresponsive to methadone and failed comfort with when necessary ativan / Monitor withdrawal smoker --prn nicotine patch Chronic issues known prior to admission, present on admission Hepatitis C chronicundetectable August 2014 /chronic lymphocytosis(WBC 10-15, lymphocytes 60%, negative CLL workup 2010) enlarged lymph nodes-- follow-up with oncology February 2017 Osteoarthritis sickle Cell trait/splenectomy childhood Colon polyp Tramadol related seizures Cardiac ablation WPW 1989, irregular heartbeat COPD GERD Pelvic inflammatory disease/tubal Incontinence Bilateral knee replacement, left ankle fracture/arthritis --held home omep/proton, on IV famotidine and IV PPI --albuterol prn Diet npo DVT prophylaxis lovenox heparin scd ambulate Code full Disposition likely needs 2-3more days, daily assessment. VTE Prophylaxis: Sub-Q Enoxaparin Resuscitation Status: CPR: Attempt Resuscitation Time spent 35min Shady Mcallister MD Jul 15, 2016 11:23
[2016-07-15 16:47] VITALS: BP 134/83; PULSE 82; RESP 18; O2SAT 94
--- NOTE | 2016-07-15 17:23 | NUR ---
Bowel management Pt complains of abdominal pain and is receiving IV morphine q 4 hours today. The patient's NG tube was injected with gastrografin and flushed with water per instructions from imaging at 1245. Imaging notified. NG tube clamped. She declined having a suppository and enema until later in the afternoon. She had a small BM after suppository given. Then later in the evening was given a fleets mineral oil enema, will continue to monitor for results.
[2016-07-15 19:58] VITALS: BP 174/94; PULSE 85; RESP 17; O2SAT 96
--- NOTE | 2016-07-16 04:25 | NUR ---
Bowel Movements Pt has been in more pain than last few nights, Morphine ineffective at start of shift, but has become effective again now. Pt has been getting up to BSC frequently for small liquid stool. Pt had first of 2 xray w/ gastrografin study. Pt is eager to hear results and is anxious that surgery may be involved.
[2016-07-16 05:07] VITALS: BP 128/79; PULSE 75; RESP 16; O2SAT 94
[2016-07-16 07:03] LABS: BASOPHILS % (AUTO) 0.3 % (0-3); EOSINOPHILS % (AUTO) 1.2 % (0-5); Mean Corpuscular Hemoglobin 31.8 pg (27.0-35.0); Mean Corpuscular Volume 93.8 fL (81-100); NEUTROPHILS % (AUTO) 25.2 % (40-74); Platelet Count 140 bil/L (150-400)
[2016-07-16 07:30] LABS: Magnesium 1.8 mg/dL (1.6-2.6); Phosphorus 4.4 mg/dL (2.5-4.9)
[2016-07-16] MEDS: Famotidine Inj 20 MG in IV Premix 1 EACH IV SCH ×2 (08:26→19:36)
[2016-07-16] MEDS: Methadone 10 mg/mL 30 mL Oral Concentration PO SCH (08:38)
--- NOTE | 2016-07-16 09:00 | NUR ---
Off Unit: Pt taken off unit in w/c per transporter at 0840 for imaging study, returned to unit in w/c per transporter at 0855.
[2016-07-16] MEDS: buPROPion SR 150 mg ER12 Tablet PO SCH (09:54)
[2016-07-16] MEDS: PARoxetine 20 mg Tablet PO SCH (09:55)
[2016-07-16] MEDS: Pantoprazole 40 mg ER24 Tablet PO SCH (09:55)
--- NOTE | 2016-07-16 10:15 | PCM.PNMED ---
Subjective Date of Service Jul 16, 2016 Subjective Patient was not still doing well, also had one episode of vomiting overnight minimal gastric output via NG as it was clamped Feels that her belly is still distended, overall pain has decreased Only had small liquid bowel movement after an amount, bisacodyl given yesterday Gastrografin challenge started yesterday afternoon, repeat imagings shows unchanged partial SBO, Dr. Duron surgery was consulted this morning Exam Vital Signs Vital Sign - Last Date Time Temp Pulse Resp B/P Pulse Ox O2 Delivery O2 Flow Rate FiO2 07/16/16 05:07 36.6 75 16 128/79 94 Room Air Intake and Output 07/15/16 07/15/16 07/16/16 Cumulative From/Thru 15:00 23:00 07:00 07/11/16 13:21 - 07/16/16 06:20 Intake Total 725 ml 873 ml 9544 ml Output Total 600 ml 5 ml 3980 ml Balance 125 ml 868 ml 5564 ml Intake Oral 0 ml 2697 ml IV Total 725 ml 873 ml 6847 ml Output Urine Total 600 ml 3725 ml Stool Total 5 ml 5 ml Emesis 250 ml # Voids 5 18 # Bowel Movements 1 Exam NAD, comfortably laying down on the bed no JVD, MMM, no LAD RRR, nl s1, s2 no mrg CTAB, no w,c Soft, mildly distended, Normoactive bowel sounds throughout, mild tenderness diffusely warm, no edema, pulses 2/[address] IVs and Medications Medications Reviewed: Medications were reviewed in detail Lab and Diagnostics Result Diagram: 07/16/1661707/16/1618 X-Rays, CTs and MRIs IMPRESSION: Small bowel gas prominence to the degree that a focal ileus or early small bowel obstruction would be suspected midabdomen, near the junction of the abdomen/pelvis. No free air or pneumatosis found, and a gas prominence does not reach the size criteria for true small bowel distention at this time ( 3 cm). Dictated by: Thien Manzo M.D. on 07/11/2016 at 14:34 Assessment & Plan Active issues and reason for admission #Recurrent SBO, POA, in the setting of prior abd surg, precipitated with chronic methadone use, NGT inserted 07/14, remained stable. repeat acute SBO series showed possible partial SBO, exam more consistent with ileus as primary trigger for her sx given huge opioid dose. -continue NG decompression, with low intermittent suction -zofran, trial relistor, monitor electrolytes -s/p enema, ducolax 07/15, will try again untill see BM -appreciate , surgery consult -awaits final gastrograffin challenge this AM #chronic opioid use with methadone -dc Dilaudid, trial of Toradol when necessary if pain unresponsive to methadone and failed comfort with when necessary ativan / Monitor withdrawal smoker --prn nicotine patch Chronic issues known prior to admission, present on admission Hepatitis C chronicundetectable August 2014 /chronic lymphocytosis(WBC 10-15, lymphocytes 60%, negative CLL workup 2010) enlarged lymph nodes-- follow-up with oncology February 2017 Osteoarthritis sickle Cell trait/splenectomy childhood Colon polyp Tramadol related seizures Cardiac ablation WPW 1989, irregular heartbeat COPD GERD Pelvic inflammatory disease/tubal Incontinence Bilateral knee replacement, left ankle fracture/arthritis --held home omep/proton, on IV famotidine and IV PPI --albuterol prn Diet npo DVT prophylaxis lovenox heparin scd ambulate Code full Disposition likely needs 2-3more days, daily assessment. VTE Prophylaxis: Sub-Q Enoxaparin Resuscitation Status: CPR: Attempt Resuscitation Time spent 35min Shady Mcallister MD Jul 16, 2016 10:15
--- NOTE | 2016-07-16 10:33 | DRSVH ---
PROCEDURE: X-RAY GASTROGRAFIN CHALLENGE, 1 VIEW ABDOMEN INDICATIONS: SMALL BOWEL OBSTRUCTION TECHNIQUE: One view of the abdomen acquired. COMPARISON: [facility], CR, XR ABD ACUTE SERIES 3VW, 07/15/2016, 9:49. FINDINGS: Surgical changes and devices: None. Bowel: Gastrografin has been instilled. Images obtained at 8 hours post Gastrografin injection demon strated mild prominence of small bowel loops within the left upper quadrant and otherwise opacificati on of the remaining small bowel and colon which appears grossly normal. Images obtained post contras t administration and 20 hours demonstrates residual contrast media within the colon. Soft tissues: No suspicious abdominal calcifications. Visualized solid organ contours appear normal in size. Bones: No suspicious bony lesions. IMPRESSION: Mild prominence of small bowel loops within the central abdomen and otherwise normal appe arance of the bowel noted. Dictated by: Darien PACK Interpreted: Thien Manzo MD on 07/16/2016 at 10:31 Transcribed by: DAMON on 07/16/2016 at 10:33 Approved by: Thien Manzo M.D. on 07/17/2016 at 10:48
[2016-07-16] MEDS: D5 0.45% NaCl + KCl 20 mEq/L 1,000 ML IV SCH ×2 (12:47→17:15)
[2016-07-16 12:51] VITALS: BP 131/69; PULSE 75; RESP 16; O2SAT 95
--- NOTE | 2016-07-16 14:15 | NUR ---
NUTRITION FOLLOW-UP: ASSESS: 56 YO female admitted for partial SBO vs opioid induced ileus. Pt has been NPO now x 2 days with NG tube. Pt with emesis overnight and started the Gastrografin challenge yesterday. NG tube without much output as it was clamped per notes. PMHx: Extensive abd. surgeries, multiple SBO, and hep C, previous drug use, osteoarthritis, colon polyps, COPD, GERD, asthma. LABS: Reviewed. MEDS: Reviewed. GI: BM x 1 (07/12). NG tube place. CURRENT WT: 78.5 kg. IBW: 48.9 kg. DIET: NPO x 2 days. Pt was eating 50-100% of full liquids prior to NPO status. EST. NEEDS (BMI, COPD): 6844-0431 kcals (22-25 kcals/kg BW), 60-75 g protein (1.2-1.5 g/kg IBW) DIAGNOSIS: 1.) Inadequate oral intake related to altered GI tract function (SBO) as evidenced by current NPO status --PERSISTS. INTERVENTION: 1.) Will continue to await timely advancement of diet hopefully within the next 24-48 hours. 2.) If it is expected that partial SBO vs ileus will persist beyond 48 more hours, recommend initiating nutrition support (TPN) in order to meet pt est. needs. MONITOR / EVAL: Diet advancement / tolerance, possible nutrition support, labs, nutritional status. Follow per high nutrition risk guidelines.
--- NOTE | 2016-07-16 14:36 | NUR ---
Pain/GI: P: Pt continues to have c/o 6-7/10 abdominal pain. I: IVP pain meds given per emar schedule. Fleets enema and suppository given per order. E: Rates pain as 6-7/10, but is resting at this time with eyes shut and RR even and unlabored. Has has small liquid BM mixed with urine this afternoon. NG tube reconnected to low-intermittent suction per MD verbal order from rounds this am, draining scant light greenish colored fluid.
--- NOTE | 2016-07-16 20:07 | CONS ---
[address] [address] CONSULTATION REPORT PATIENT: NIKHIL TREJO : 1960 MR#: [id number] ADMIT: 07/11/2016 JOB ID: [id number] DATE OF SERVICE: 07/16/2016 CHIEF COMPLAINT: This is a patient with small bowel obstruction; my opinion is requested by Dr. Shane Mcallister MD. HISTORY OF PRESENT ILLNESS: This is a 56-year-old woman with a history of five previous hospitalizations for small bowel obstruction who has been admitted since July 11. She originally presented with abdominal pain associated with vomiting and obstipation. She was kept NPO and had a bowel movement on the 2nd day of admission. However, she continued to have abdominal bloating and pain, and therefore on July 14 an NG tube was inserted. Radiographs performed early in her admission revealed small scattered air-fluid levels within the abdomen and pelvis. Findings are suggestive of ileus versus partial small bowel obstruction. The patient is on methadone chronically and there has been a question of whether this is contributory to her symptoms. Yesterday, Gastrografin was administered via her NG tube at noon. Eight hours later, a radiograph was performed that revealed contrast in the right and left colon. This morning, she reported a small liquid bowel movement overnight, and her pain had improved somewhat overnight. PAST MEDICAL HISTORY: Hepatitis C, osteoarthritis, sickle cell trait status post splenectomy, colon polyps, tramadol-related seizures, cardiac ablation for [id number] in 1989, COPD, GERD, pelvic inflammatory disease, incontinence, history of fecal incontinence. PAST SURGICAL HISTORY: 1. Laparoscopic cholecystectomy. 2. Open splenectomy as a child for sickle cell trait. 3. Surgery for an ectopic . 4. She reports a pelvic mesh placement for fecal incontinence at [facility] in 2002. 5. She reports four laparoscopies to treat ovarian cysts. 6. Bilateral knee replacement. MEDICATIONS: Current medications are reviewed and include: 1. Albuterol. 2. Bisacodyl suppositories. 3. Bupropion. 4. Lovenox. 5. Famotidine. 6. Hydrochlorothiazide. 7. Lisinopril. 8. Lorazepam. 9. Methadone. 10. Morphine. 11. Nicotine. 12. Zofran. 13. Pantoprazole. 14. Paroxetine. 15. Potassium. ALLERGIES: 1. TAPE. 2. MELOXICAM. 3. TRAMADOL. SOCIAL HISTORY: She has never smoked and denies alcohol use. She reports she has not used heroin for many years, but once she came off of it she was on Suboxone and then transitioned to methadone. PHYSICAL EXAMINATION: Temperature 36.6, heart rate 75, blood pressure 131/69, respiratory rate is 16. Saturation 95% on room air. General: Awake, alert, no acute distress. She is walking around the room. NGT was in place. Head: Normocephalic. Neck: Supple. Cardiac: Regular rate and rhythm, no murmurs, rubs, or gallops. Respiratory: Clear to auscultation bilaterally. Abdomen: Soft, flat, nondistended, essentially nontender on examination, no rebound or guarding. Extremities: No edema. Psychiatric: Normal cognition and judgment. IMAGING: Abdominal films from July 11, , , , and are all personally reviewed, including Gastrografin challenge images from the and . At the time of admission, she had somewhat dilated-appearing bowel with gas prominence that did not reach the size criteria for small bowel distention, and scattered air-fluid levels. This overall gas pattern has improved. After Gastrografin administration, 8 hours later there was Gastrografin in her right as well as left colon. LABORATORY DATA: CBC is within normal limits with the exception of hematocrit 34.5. This includes a white blood cell count of 9.2, and white blood cell count has been normal throughout the admission. Lactate has not been checked. Comprehensive metabolic panel is within normal limits. ASSESSMENT: A 56-year-old woman with a history of multiple hospitalizations for small bowel obstruction, who presents for the same on this admission. Gastrografin challenge was performed yesterday and she has had a small bowel movement overnight and there is Gastrografin within the colon. RECOMMENDATIONS: Given the location of Gastrografin on most recent radiographs, it is likely that she will be continued to have bowel movements and potentially her diet may be advanced. I do not recommend immediate surgery at this time. She has already had eight operations on her abdomen, and although she has had five admissions for small bowel obstruction, she is still young and the more times an operation is performed on her abdomen, the more scar tissue will form and increase her chances of having another obstruction in the future. I therefore recommend avoidance of surgery if at all possible in this patient. I will continue to follow her while she is in-house. Please continue NG tube decompression at this time. ANDREINA
[2016-07-16 20:15] VITALS: BP 149/105; PULSE 78; RESP 17; O2SAT 95
[2016-07-16] MEDS: Ketorolac 15 mg/mL Inj IVPUSH PRN (21:20)
[2016-07-17] MEDS: D5 0.45% NaCl + KCl 20 mEq/L 1,000 ML IV SCH ×2 (00:03→16:27)
[2016-07-17 05:26] VITALS: BP 148/94; PULSE 78; RESP 16; O2SAT 95
--- NOTE | 2016-07-17 06:13 | NUR ---
Shift Note Assumed pt care at 1900, pt with NGT to low intermittent suction, drained 100mls of yellowish colored fluid, no n/v, abdominal pain managed with PRN Morphine and Toradol,so far managing pain per pt report, no breakthrough pain, q1 checks done throughout night.
[2016-07-17] MEDS: Ketorolac 15 mg/mL Inj IVPUSH PRN ×3 (06:37→20:20)
[2016-07-17 06:48] LABS: BASOPHILS % (AUTO) 0.5 % (0-3); EOSINOPHILS % (AUTO) 0.5 % (0-5); MONOCYTES % (AUTO) 13.2 % (4-12); Mean Corpuscular Hemoglobin 31.4 pg (27.0-35.0); NEUTROPHILS % (AUTO) 25.7 % (40-74); Platelet Count 142 bil/L (150-400)
[2016-07-17 07:18] LABS: Magnesium 1.7 mg/dL (1.6-2.6); Phosphorus 3.7 mg/dL (2.5-4.9)
[2016-07-17] MEDS: Pantoprazole 40 mg ER24 Tablet PO SCH (08:32)
[2016-07-17] MEDS: buPROPion SR 150 mg ER12 Tablet PO SCH (08:32)
[2016-07-17] MEDS: PARoxetine 20 mg Tablet PO SCH (08:33)
[2016-07-17] MEDS: Methadone 10 mg/mL 30 mL Oral Concentration PO SCH (08:34)
[2016-07-17] MEDS: Famotidine Inj 20 MG in IV Premix 1 EACH IV SCH ×2 (08:38→20:20)
[2016-07-17 08:58] VITALS: BP 162/80; PULSE 72; RESP 18; O2SAT 94
[2016-07-17] MEDS: Polyethylene Glycol (PEG) 17 Gm Powder PO SCH (11:20)
--- NOTE | 2016-07-17 11:31 | PCM.PNMED ---
Subjective Date of Service Jul 17, 2016 Subjective Patient was seen by Dr. Oliverio Rowe surgery Recommended to advance her diet,keep NG decompression, no surgery planned Patient remained asymptomatic, able to tolerate clears this AM denied nausea, vomiting, patient thinks that she is getting better Exam Vital Signs Vital Sign - Last Date Time Temp Pulse Resp B/P Pulse Ox O2 Delivery O2 Flow Rate FiO2 07/17/16 08:58 36.9 72 18 162/80 94 Room Air Intake and Output 07/16/16 07/16/16 07/17/16 Cumulative From/Thru 15:00 23:00 07:00 07/11/16 13:21 - 07/17/16 05:24 Intake Total 0 ml 950 ml 43334 ml Output Total 1 ml 100 ml 4081 ml Balance -1 ml 850 ml 6413 ml Intake Oral 0 ml 2697 ml IV Total 950 ml 7797 ml Output Urine Total 3725 ml Stool Total 1 ml 6 ml Gastric Drainage Total 100 ml 100 ml Emesis 250 ml # Voids 2 6 26 # Bowel Movements 6 7 Exam NAD, comfortably laying down on the bed no JVD, MMM, no LAD RRR, nl s1, s2 no mrg CTAB, no w,c Soft, mildly distended, Normoactive bowel sounds throughout, mild tenderness diffusely warm, no edema, pulses 2/[address] IVs and Medications Medications Reviewed: Medications were reviewed in detail Lab and Diagnostics Result Diagram: 07/17/16 0555 07/17/16 0555 X-Rays, CTs and MRIs IMPRESSION: Small bowel gas prominence to the degree that a focal ileus or early small bowel obstruction would be suspected midabdomen, near the junction of the abdomen/pelvis. No free air or pneumatosis found, and a gas prominence does not reach the size criteria for true small bowel distention at this time ( 3 cm). Dictated by: Thien Manzo M.D. on 07/11/2016 at 14:34 Assessment & Plan Active issues and reason for admission #Recurrent SBO, POA, in the setting of prior abd surg, precipitated with chronic methadone use, NGT inserted 07/14, remained stable. repeat acute SBO series showed possible partial SBO, exam more consistent with ileus as primary trigger for her sx given huge opioid dose. Gastrograffin challenge 07/15 showed passing contrast in colon. -continue NG decompression, with low intermittent suction, close to d/c, appreciate surgery input -evelin, trial relistor, monitor electrolytes -s/p enema, ducolax 07/15, 07/16. will start oral bowel regimen with Miralax, colace, senna -appreciate , surgery input, no surgery at this point, #chronic opioid use with methadone -dc Dilaudid, trial of Toradol when necessary if pain unresponsive to methadone and failed comfort with when necessary ativan / Monitor withdrawal smoker --prn nicotine patch Chronic issues known prior to admission, present on admission Hepatitis C chronicundetectable August 2014 /chronic lymphocytosis(WBC 10-15, lymphocytes 60%, negative CLL workup 2010) enlarged lymph nodes-- follow-up with oncology February 2017 Osteoarthritis sickle Cell trait/splenectomy childhood Colon polyp Tramadol related seizures Cardiac ablation [facility]W 1989, irregular heartbeat COPD GERD Pelvic inflammatory disease/tubal Incontinence Bilateral knee replacement, left ankle fracture/arthritis --held home omep/proton, on IV famotidine and IV PPI --albuterol prn Diet clears now, advance as tolerate today. DVT prophylaxis lovenox heparin scd ambulate Code full Disposition likely 1-2days, VTE Prophylaxis: Sub-Q Enoxaparin Resuscitation Status: CPR: Attempt Resuscitation Time spent 35 minutes Shady Mcallister MD Jul 17, 2016 11:31
--- NOTE | 2016-07-17 16:57 | NUR ---
Pain management Patient is alert and oriented X3. Able to make needs known. Stable mood. C/o pain to abdomen and right upper shoulder and neck. PRN Ketorolac and PRN MS given as ordered with effective results. pain decreased from 8-9 to 5 per patient. patient is clear diet liquid diet. NG tube at 60cm jasmin and draining yellowish fluid 200cc and on intermittent suction. patient is independent with mobility. Difficulty flushing IV to the right arm. called IV therapy and has new IV Access to left forearm and Fluids running as ordered. Continue to monitor vital signs, pain management and safety. uses call light to make needs known and call light with in reach for safety.
[2016-07-17 17:50] VITALS: BP 154/86; PULSE 77; RESP 17; O2SAT 92
[2016-07-17 19:34] VITALS: BP 144/71; PULSE 75; RESP 16; O2SAT 95
--- NOTE | 2016-07-17 22:34 | PCM.PNSURG ---
Subjective Visit Information: Reason for Visit Abdominal Pain Surgery/Surgery Date Post-Op Day # Date of Admission: Jul 11, 2016 at 17:25 Hospital Day # Subjective: 7 BMs since yesterday. Abd remains non distended. Vitals stable. Objective Vital Sign- Last 8 Hours Date Time Temp Pulse Resp B/P Pulse Ox O2 Delivery O2 Flow Rate FiO2 07/17/16 19:34 37.1 75 16 144/71 95 Room Air 07/17/16 17:50 37.1 77 17 154/86 92 Room Air Intake and Output- Last 8 Hour 07/17/16 Cumulative From/Thru 07:00 07/11/16 13:21 - 07/17/16 05:24 Intake Total 950 ml 04633 ml Output Total 100 ml 4081 ml Balance 850 ml 6413 ml Intake Oral 2697 ml IV Total 950 ml 7797 ml Output Urine Total 3725 ml Stool Total 6 ml Gastric Drainage Total 100 ml 100 ml Emesis 250 ml # Voids 6 26 # Bowel Movements 6 7 General: Alert, Oriented X3 Abdomen: Soft, Other (mild tenderness in b/l lower abdomen) Result Diagram: 07/17/16 0555 07/17/16 0555 Assessment & Plan Impression SBO, improving after gastrografin and NG decompression Problems: Plan Consider removing NG tomorrow with slow advancement of diet. VTE Prophylaxis: Sub-Q Enoxaparin Resuscitation Status: CPR: Attempt Resuscitation Maya Duron MD Jul 17, 2016 22:34
[2016-07-18] VITALS (7 sets, daily range): BP systolic 135–184; BP diastolic 82–105; PULSE 71–89; RESP 14–20; O2SAT 91–96
[2016-07-18] MEDS: D5 0.45% NaCl + KCl 20 mEq/L 1,000 ML IV SCH ×2 (03:29→17:38)
--- NOTE | 2016-07-18 05:27 | NUR ---
Shift Note Assumed pt care at 1900, pt continues with IVF, tolerated full liquids so far this shift, pt refused scheduled PM Senna and Colace, had BM x2, NGT continues on low intermittent suction, qhrly checks done throughout night
[2016-07-18 07:33] LABS: BASOPHILS % (AUTO) 0.2 % (0-3); EOSINOPHILS % (AUTO) 1.6 % (0-5); MONOCYTES % (AUTO) 13.2 % (4-12); Mean Corpuscular Hemoglobin 31.4 pg (27.0-35.0); Mean Corpuscular Volume 92.6 fL (81-100); NEUTROPHILS % (AUTO) 22.2 % (40-74); Platelet Count 155 bil/L (150-400)
[2016-07-18 07:47] LABS: Magnesium 1.7 mg/dL (1.6-2.6); Phosphorus 3.5 mg/dL (2.5-4.9)
[2016-07-18] MEDS: Famotidine Inj 20 MG in IV Premix 1 EACH IV SCH ×2 (08:18→20:17)
[2016-07-18] MEDS: Polyethylene Glycol (PEG) 17 Gm Powder PO SCH (08:19)
[2016-07-18] MEDS: PARoxetine 20 mg Tablet PO SCH (08:20)
[2016-07-18] MEDS: Pantoprazole 40 mg ER24 Tablet PO SCH (08:20)
[2016-07-18] MEDS: buPROPion SR 150 mg ER12 Tablet PO SCH (08:25)
[2016-07-18] MEDS: Methadone 10 mg/mL 30 mL Oral Concentration PO SCH (08:46)
--- NOTE | 2016-07-18 10:12 | PCM.PNMED ---
Subjective Date of Service Jul 18, 2016 Subjective Patient tolerated full liquid diet well yesterday Although had over 400 mL gastric output with NG suction Dr. Duron suggested to advance her diet, possibly DC NG today We will plan to continue clears this morning, pured diet at lunch if she does well then DC ALFONZO Denied abdominal pain, nausea, vomiting Had multiple liquid stools yesterday which made her feel better Exam Vital Signs Vital Sign - Last Date Time Temp Pulse Resp B/P Pulse Ox O2 Delivery O2 Flow Rate FiO2 07/18/16 09:47 36.9 89 16 177/87 91 Room Air Intake and Output 07/17/16 07/17/16 07/18/16 Cumulative From/Thru 15:00 23:00 07:00 07/11/16 13:21 - 07/18/16 05:00 Intake Total 2285 ml 1144 ml 87930 ml Output Total 1100 ml 5181 ml Balance 2285 ml 44 ml 8742 ml Intake Oral 1625 ml 200 ml 4522 ml IV Total 660 ml 944 ml 9401 ml Output Urine Total 3725 ml Stool Total 6 ml Urine/Stool Mix 600 ml 600 ml Gastric Drainage Total 500 ml 600 ml Emesis 250 ml # Voids 3 29 # Bowel Movements 7 Exam NAD, comfortably laying down on the bed no JVD, MMM, no LAD RRR, nl s1, s2 no mrg CTAB, no w,c Soft, mildly distended, Normoactive bowel sounds throughout, nontender warm, no edema, pulses 2/[address] IVs and Medications Medications Reviewed: Medications were reviewed in detail Lab and Diagnostics Result Diagram: 07/18/1634 07/18/16 0634 X-Rays, CTs and MRIs IMPRESSION: Small bowel gas prominence to the degree that a focal ileus or early small bowel obstruction would be suspected midabdomen, near the junction of the abdomen/pelvis. No free air or pneumatosis found, and a gas prominence does not reach the size criteria for true small bowel distention at this time ( 3 cm). Dictated by: Thien Manzo M.D. on 07/11/2016 at 14:34 Assessment & Plan Active issues and reason for admission #Recurrent SBO, POA, in the setting of prior abd surg, precipitated with chronic methadone use, NGT inserted 07/14, remained stable. repeat acute SBO series showed possible partial SBO, exam more consistent with ileus as primary trigger for her sx given huge opioid dose. Gastrograffin challenge 07/15 showed passing contrast in colon. -continue NG decompression, with low intermittent suction, likely DC today -zofran, trial relistor, monitor electrolytes -s/p enema, ducolax 07/15, 07/16. will start oral bowel regimen with Miralax, colace, senna -appreciate , surgery input, no surgery at this point, #chronic opioid use with methadone -dc Dilaudid, trial of Toradol when necessary if pain unresponsive to methadone and failed comfort with when necessary ativan / Monitor withdrawal smoker --prn nicotine patch Chronic issues known prior to admission, present on admission Hepatitis C chronicundetectable August 2014 /chronic lymphocytosis(WBC 10-15, lymphocytes 60%, negative CLL workup 2010) enlarged lymph nodes-- follow-up with oncology February 2017 Osteoarthritis sickle Cell trait/splenectomy childhood Colon polyp Tramadol related seizures Cardiac ablation WPW 1989, irregular heartbeat COPD GERD Pelvic inflammatory disease/tubal Incontinence Bilateral knee replacement, left ankle fracture/arthritis --held home omep/proton, on IV famotidine and IV PPI --albuterol prn Diet advance diet to puree at lunch, DVT prophylaxis lovenox heparin scd ambulate Code full Disposition likely tomorrow home if patient tolerates diet, clinically remained stable VTE Prophylaxis: Sub-Q Enoxaparin Resuscitation Status: CPR: Attempt Resuscitation Time spent 35 minutes Shady Mcallister MD Jul 18, 2016 10:12
--- NOTE | 2016-07-18 11:38 | NUR ---
NUTRITION FOLLOW-UP: ASSESS: 56 YO female admitted for partial SBO vs opioid induced ileus. Pt continues with NG tube but was able to have her diet advanced to [place] 07/17. She is tolerating well and per surgery, possible d/c of NGT today and diet to be further advanced. PO intake has been good at 100%. Pt has not had a new wt since admit. PMHx: Extensive abd. surgeries, multiple SBO, and hep C, previous drug use, osteoarthritis, colon polyps, COPD, GERD, asthma. LABS: Reviewed. Glu 104, Ca 8.3, Alb 3.3 MEDS: Reviewed. GI: BM x (07/17). NG tube place. CURRENT WT: 78.5 kg. BMI 32.2kg/m2 IBW: 48.9 kg. DIET: FL diet, PO 100%x2 meals EST. NEEDS (BMI, COPD): 5887-7992 kcals (22-25 kcals/kg BW), 60-75 g protein (1.2-1.5 g/kg IBW) DIAGNOSIS: 1.) Inadequate oral intake related to altered GI tract function (SBO) as evidenced by current NPO status --IMPROVED INTERVENTION: 1.) Continue to slowly advance diet as tolerated 2.) New wt requested MONITOR / EVAL: Diet advancement / tolerance, GI, labs, nutritional status. Follow per moderate nutrition risk guidelines.
[2016-07-18] MEDS: Ketorolac 15 mg/mL Inj IVPUSH PRN ×2 (12:43→20:17)
--- NOTE | 2016-07-18 14:55 | NUR ---
NG tube d/c/HTN NG tube suction turned off at 0800. Pt. ate full liquid breakfast and puree lunch and tolerated both meals well with moderate abdominal pain managed with PRN toradol and morphine. Per MD order, NG tube dc'd at 1400. Pt. continues to tolerate no NG tube well. Pt. hypertensive this a.m. BP meds administered, but BP was still 166/105 at noon. notified. No order changes at this time. Will continue to monitor.
--- NOTE | 2016-07-18 16:20 | NUR ---
Social Work: Brief Note Data & Assessment. Patient is on her seventh day of hospitalization. Patient is not medically stable for discharge. Patient was discussed in daily rounds and it is anticipated that will be able to discharge on 07/18 if she tolerates her diet change. Patient does not have any discharge needs. SW will continue to follow. Plan: It is like that patient will discharge home with no needs. SW will continue to follow patient. Lynn Madrid LMSW, ACSinan
--- NOTE | 2016-07-18 17:51 | PCM.PNSURG ---
Subjective Visit Information: Reason for Visit Abdominal Pain Surgery/Surgery Date Post-Op Day # Date of Admission: Jul 11, 2016 at 17:25 Hospital Day # Subjective: Substantial flatus today. No additional BMs. Tolerated FLD and purees today. Objective Vital Sign- Last 8 Hours Date Time Temp Pulse Resp B/P Pulse Ox O2 Delivery O2 Flow Rate FiO2 07/18/16 16:47 36.9 73 14 135/83 96 Room Air 07/18/16 12:33 37.0 82 16 166/105 93 Room Air Intake and Output- Last 8 Hour 07/18/16 Cumulative From/Thru 07:00 07/11/16 13:21 - 07/18/16 05:00 Intake Total 1144 ml 24674 ml Output Total 1100 ml 5181 ml Balance 44 ml 8742 ml Intake Oral 200 ml 4522 ml IV Total 944 ml 9401 ml Output Urine Total 3725 ml Stool Total 6 ml Urine/Stool Mix 600 ml 600 ml Gastric Drainage Total 500 ml 600 ml Emesis 250 ml # Voids 29 # Bowel Movements 7 Abdomen: Soft, Other (mild tenderness in lower abdomen) Result Diagram: 07/18/16 0634 07/18/16 0634 Assessment & Plan Impression SBO, resolving Problems: Plan Continue to advance diet. No surgery recommended. If she desires, OK to f/u in surgery clinic. I will sign off at this time. VTE Prophylaxis: Sub-Q Enoxaparin Resuscitation Status: CPR: Attempt Resuscitation Maya Duron MD Jul 18, 2016 17:51
[2016-07-19 03:32] VITALS: BP 163/87; PULSE 74; RESP 20; O2SAT 95
--- NOTE | 2016-07-19 03:43 | NUR ---
Diet/Pain Pt complain most of shoulder/neck pain. She at times c/o abd pain but reported relief with pain meds. Pt tolerated her General diet dinner and ate about 75%. No c/o nausea or vomiting noted/reported. Addendum: 07/19/16 at 0345 by CECILLE TAYLOR RN Pt had small soft bm tonight.
[2016-07-19] MEDS: Ketorolac 15 mg/mL Inj IVPUSH PRN (05:04)
[2016-07-19] MEDS: D5 0.45% NaCl + KCl 20 mEq/L 1,000 ML IV SCH (07:12)
[2016-07-19] MEDS: Famotidine Inj 20 MG in IV Premix 1 EACH IV SCH (08:08)
[2016-07-19] MEDS: PARoxetine 20 mg Tablet PO SCH (08:10)
[2016-07-19] MEDS: buPROPion SR 150 mg ER12 Tablet PO SCH (08:10)
[2016-07-19] MEDS: Polyethylene Glycol (PEG) 17 Gm Powder PO SCH (08:10)
[2016-07-19] MEDS: Pantoprazole 40 mg ER24 Tablet PO SCH (08:11)
[2016-07-19 08:30] VITALS: BP 160/83; PULSE 68; RESP 16; O2SAT 95
[2016-07-19] MEDS: Methadone 10 mg/mL 30 mL Oral Concentration PO SCH (09:17)
--- NOTE | 2016-07-19 11:02 | PCM.DIMED ---
Discharge Instructions Date of Service Jul 19, 2016 Dates of Hospitalization Jul 11, 2016 at 17:25 Discharge Diagnosis Discharge Diagnosis Small bowel obstruction Chronic opioid use Nicotine abuse Diet No restrictions Activity No restrictions Call your provider Fever or Chills, Shortness of breath, Bleeding, Chest pain, Vomitting, Excessive diarrhea Patient Instructions Please do not take any narcotic pain medications as this can cause constipation. He may continue to use stool softeners as needed for constipation. Follow-up Provider: Junior Snowden PA-C Follow-up with PCP in: 1 week (if an appointment has not already been made please call your primary care provider for follow-up appointment) Provider: Maya Duron MD Follow-up in: 5 weeks (if an appointment has not already been made please call your primary care provider for follow-up appointment) Bhargavi Méndez DO Jul 19, 2016 11:02
[2016-07-19] MEDS ORDERED: METH40TA2 PO (11:09)
[2016-07-19] MEDS ORDERED: HYDR25TA4 PO (11:09)
[2016-07-19] MEDS ORDERED: KETO30CA8 IJ (11:09)
--- NOTE | 2016-07-19 12:30 | NUR ---
Discharge Pt was A&O x 4 at time of dc. Pt understood all dc plans, and medications, all questioned were answered. Pt requested pain medication before dc, but her IV was already taken out, and she didn't have anything oral. Pt up and walked ind with steady gait to . Pt dc'd via by staff. All belongings accounted for.
--- NOTE | 2016-07-19 13:51 | NUR ---
Clarify Toradol Clarify with Liv @ [facility] pharmacy [place] dose. To be 10 mg PO every 6 hours prn for #20.
--- NOTE | 2016-07-19 17:06 | PCM.DC.MED ---
Discharge Summary Date of Service Jul 19, 2016 Dates of Hospitalization Date of Hospital Admission Jul 11, 2016 at 17:25 Date of Discharge: Jul 19, 2016 Providers: Admitting Physician: Chata Shay MD Primary Care Physician: Junior Snowden PA-C Attending Physician: Chata Shay MD Diagnosis at Time of Discharge Diagnosis at Time of Discharge Small bowel obstruction Chronic opioid use Nicotine abuse Procedures XRay, CTs & MRIs IMPRESSION: Small bowel gas prominence to the degree that a focal ileus or early small bowel obstruction would be suspected midabdomen, near the junction of the abdomen/pelvis. No free air or pneumatosis found, and a gas prominence does not reach the size criteria for true small bowel distention at this time ( 3 cm). Dictated by: Thien Manzo M.D. on 07/11/2016 at 14:34 Brief History Patient was admitted for recurrent small bowel obstruction. Hospital Course Patient was admitted for small bowel obstruction. The patient was decompressed with an NG tube and general surgery was consulted to the case. It was decided that the patient would do better with bowel rest and nonsurgical means to decompress the abdomen. The patient was given stool softeners and discontinued from opioid medications. The patient started having bowel movements and her diet was advanced to clear liquids and then continue to advance. Patient was discharged tolerating a full diet and was still having regular bowel movements. The patient was discharged home in total to follow up with her primary care within 1 week and she may follow-up with general surgery within 5 weeks. It was explained to the patient that she needed to avoid any narcotics as this will cause further constipation. It was also explained to the patient that if after 1-2 days of no bowel movements that she should restart taking Colace 100 twice a day when necessary. The patient stated that she understood and would comply. The patient was discharged home with 2 doses of her current methadone medication as she was not able to make it to the clinic today. The patient was also given a perception for Toradol 10 mg when necessary pain every 6 hours. Exam Vital Signs (Last) Date Time Temp Pulse Resp B/P Pulse Ox O2 Delivery O2 Flow Rate FiO2 07/19/16 08:30 36.8 68 16 160/83 95 Room Air Test 07/11/16 13:45 07/11/16 14:07 1/27/17 06:34 Prothrombin Time 11.2sec (8.1-12.5) Prothromb Time International Ratio 1.05ratio Lipase 34U/L (13-60) Hold [place] Top Tube Received (Received) White Blood Count 8.6th/mm3 (3.8-10.1) Red Blood Count 3.76mil/mm3 (3.90-5.20) Hemoglobin 11.8g/dL (12.0-15.6) Hematocrit 34.8% (35.0-46.0) Mean Corpuscular Volume 92.6fL (81-100) Mean Corpuscular Hemoglobin 31.4pg (27.0-35.0) Mean Corpuscular Hemoglobin Concent 33.9% (32.0-37.0) Red Cell Distribution Width 14.1% (12.3-15.4) Platelet Count 155bil/L (150-400) Neutrophils (%) (Auto) 22.2% (40-74) Lymphocytes (%) (Auto) 62.2% (14-46) Monocytes (%) (Auto) 13.2% (4-12) Eosinophils (%) (Auto) 1.6% (0-5) Basophils (%) (Auto) 0.2% (0-3) Sodium Level 141mEq/L (134-144) Potassium Level 4.3mEq/L (3.5-5.2) Chloride Level 108mEq/L (97-108) Carbon Dioxide Level 23mmol/L (18-29) Blood Urea Nitrogen 6mg/dL (6-24) Creatinine 0.90mg/dL (0.57-1.00) Estimat Glomerular Filtration Rate 93mL/min (>59) Glucose Level 104mg/dL (60-99) Calcium Level 8.3mg/dL (8.5-10.1) Phosphorus Level 3.5mg/dL (2.5-4.9) Magnesium Level 1.7mg/dL (1.6-2.6) Total Bilirubin 0.7mg/dL (0.0-1.2) Aspartate Amino Transf (AST/SGOT) 27U/L (0-50) Alanine Aminotransferase (ALT/SGPT) 10U/L (0-32) Alkaline Phosphatase 86U/L (25-150) Total Protein 6.7g/dL (6.4-8.4) Albumin 3.3g/dL (3.4-5.0) Discharge Medications Discharge Medications Bupropion ER (Wellbutrin SR) 150 Mg Tablet.er 150 MG PO DAILY (Reported) Hydrochlorothiazide (Hydrochlorothiazide) 25 Mg Tablet 25 MG PO BID Prescribed by: ANGELA DAVISON DO Lisinopril / HCTZ 20-25 mg (Lisinopril / HCTZ 20-25 mg) 1 Each Tablet 1 EACH PO DAILY (Reported) Methadone (Methadone) 40 Mg Tablet.sheela 76 MG PO DAILY Prescribed by: ANGELA DAVISON DO Pantoprazole DR (Pantoprazole DR) 40 Mg Tablet.dr 40 MG PO DAILY (Reported) Paroxetine (Paxil) 10 Mg Tab 10 MG PO DAILY (Reported) As needed Albuterol HFA (Proair HFA) 8.5 Gm Hfa.aer.ad 2 PUFFS INHALATION Q4H PRN PRN For Shortness of Breath (Reported) Ketorolac Tromethamine (Ketorolac Tromethamine) 30 Mg/1 Ml Cartridge 30 MG IJ every 6 hours PRN PRN For Pain Prescribed by: ANGELA DAVISON DO Miscellaneous Medications Acyclovir (Acyclovir) 800 Mg Tab 800 MG PO (Reported) Followup Plan Discharge Diet: No restrictions Discharge Activity: No restrictions Patient Instructions Please do not take any narcotic pain medications as this can cause constipation. He may continue to use stool softeners as needed for constipation. Follow-up Provider: Junior Snowden PA-C Follow-up with PCP in: 1 week (if an appointment has not already been made please call your primary care provider for follow-up appointment) Provider: Maya Duron MD Follow-up in: 5 weeks (if an appointment has not already been made please call your primary care provider for follow-up appointment) Time spent Greater than 35 minutes copies to: Junior Snowden PA-C, Precious L DO Jul 19, 2016 11:10
== END 2016-07-19 12:30 | disposition home or self-care (01) | DRG 247 ==
LOC: SED 13:03 → MOC 17:25 → OBSVTOIN 17:25
PROVIDERS: ADMIT Urology; ATTEND Urology
PROC: 4A033R1 Measurement of Arterial Saturation, Peripheral, Percutaneous Approach (ICD-10-PCS; principal; 2016-07-11)
DX: K56.60 Unspecified intestinal obstruction (principal); F11.20 Opioid dependence, uncomplicated; I10 Essential (primary) hypertension; J44.9 Chronic obstructive pulmonary disease, unspecified; K21.9 Gastro-esophageal reflux disease without esophagitis; F17.210 Nicotine dependence, cigarettes, uncomplicated; B18.2 Chronic viral hepatitis C